=== PATIENT | female | born 1970 | race Caucasian/White ===

== ENCOUNTER 2017-09-11 16:59 | Emergency (ER) | payer OTHER ==
[2017-09-11 17:06] VITALS: TEMP 98.6
[2017-09-11] MEDS ORDERED: KETOROLAC TROMETHAMINE 30 MG/ML SOL IV ONE (17:13)
[2017-09-11] MEDS ORDERED: SODIUM CHLORIDE 0.9% FLUSH 10 ML SOL IV PRN (17:13)
[2017-09-11] MEDS ORDERED: DIPHENHYDRAMINE 50 MG/ML SOL IV ONE (17:13)
[2017-09-11] MEDS ORDERED: SODIUM CHLORIDE 0.9% 1000ML 1,000 ML IV SCH (17:15)
[2017-09-11] MEDS ORDERED: PROCHLORPERAZINE EDISYLATE 5 MG/ML SOL IM ONE (17:16)
[2017-09-11] MEDS ORDERED: PROCHLORPERAZINE EDISYLATE 5 MG/ML SOL ONE (17:20)
[2017-09-11] MEDS ORDERED: KETOROLAC TROMETHAMINE 30 MG/ML SOL ONE (17:20)
[2017-09-11] MEDS ORDERED: DIPHENHYDRAMINE 50 MG/ML SOL ONE (17:20)
[2017-09-11 17:35] LABS: BASOPHILS % (AUTO) 1 % (0-3); EOSINOPHILS % (AUTO) 2 % (0-9); HEMATOCRIT 41 % (35-47); MEAN CORPUSCULAR HGB CONC 35.1 gm/dl (32.0-36.0); MEAN CORPUSCULAR VOLUME 86 fL (81-99); MONOCYTES % (AUTO) 5.9 % (0-12); NEUTROPHILS % (AUTO) 63.1 % (37-80)
[2017-09-11 17:48] LABS: ALBUMIN 4.1 gm/dl (3.4-5.0); CALCIUM 9.1 mg/dl (8.5-10.1); POTASSIUM 3.6 mMol/L (3.5-5.1)
[2017-09-11 19:12] VITALS: BP 134/83; PULSE 60; RESP 12; O2SAT 98
== END 2017-09-11 19:07 | disposition home or self-care (01) | DRG 103 ==
LOC: ED 16:59
DX: G43.519 Persistent migraine aura without cerebral infarction, intractable, without status migrainosus (principal)
CPT/HCPCS: 80053; 85025; 99284; J0780; J1200; J1885

== ENCOUNTER 2018-06-28 02:09 | Emergency (ER) | payer OTHER ==
[2018-06-28 02:14] VITALS: TEMP 96.8
[2018-06-28] MEDS ORDERED: SODIUM CHLORIDE 0.9% FLUSH 10 ML SOL IV PRN (02:40)
[2018-06-28] MEDS ORDERED: SODIUM CHLORIDE 0.9% 1000ML 1,000 ML IV ONE (02:42)
[2018-06-28] MEDS ORDERED: PROCHLORPERAZINE EDISYLATE 5 MG/ML SOL IV ONE (02:43)
[2018-06-28] MEDS ORDERED: KETOROLAC TROMETHAMINE 30 MG/ML SOL IV ONE (02:43)
[2018-06-28] MEDS ORDERED: DIPHENHYDRAMINE 50 MG/ML SOL IV ONE (02:46)
[2018-06-28] MEDS ORDERED: DIPHENHYDRAMINE 50 MG/ML SOL ONE (02:48)
[2018-06-28] MEDS ORDERED: KETOROLAC TROMETHAMINE 30 MG/ML SOL ONE (02:48)
[2018-06-28] MEDS ORDERED: PROCHLORPERAZINE EDISYLATE 5 MG/ML SOL ONE (02:49)
[2018-06-28 03:59] VITALS: O2SAT 97
[2018-06-28 04:00] VITALS: BP 119/78; PULSE 62; RESP 18
== END 2018-06-28 03:50 | disposition home or self-care (01) | DRG 103 ==
LOC: ED 02:09
DX: G43.119 Migraine with aura, intractable, without status migrainosus (principal)
CPT/HCPCS: 96365; 96374; 96375; 99283; 99285; J0780; J1200; J1885